=== PATIENT | male | born 1950 | race Hispanic/Latino ===

== ENCOUNTER 2017-05-26 12:35 | Emergency (ER) | payer OTHER ==
[2017-05-26 13:31] LABS: Anion Gap 15 mmol/L (10-20); BUN (Urea Nitrogen) 6 mg/dL (8.4-25.7); Calc. Creatinine Clearance 0 mL/min (70-130); Calcium 8.8 mg/dL (7.8-10.44); Carbon Dioxide 22 mmol/L (23-31); Chloride 100 mmol/L (98-107); Estimated GFR-MDRD Greater than 90
== END 2017-05-26 14:38 | disposition home or self-care (01) ==
LOC: ERS 12:35
DX: F10.129 Alcohol abuse with intoxication, unspecified (principal); J45.909 Unspecified asthma, uncomplicated; M19.90 Unspecified osteoarthritis, unspecified site; F41.9 Anxiety disorder, unspecified; F31.9 Bipolar disorder, unspecified; F20.9 Schizophrenia, unspecified; F17.210 Nicotine dependence, cigarettes, uncomplicated
CPT/HCPCS: 36415; 80048; 93005

== ENCOUNTER 2017-12-03 22:20 | Emergency (ER) | payer MEDICARE, OTHER ==
[2017-12-03] MEDS ORDERED: Multivitamins, Adult 10 ML, Thiamine HCl 100 MG, Folic Acid 1 MG in Dextrose 5 %-0.45 %... IV SCH ×4 (23:30)
--- NOTE | 2017-12-04 | RAD ---
PORTABLE AP CHEST X-RAY: 12/03/2017 HISTORY: Nausea and vomiting. Loss of appetite and diarrhea for four days. Abdominal pain. COMPARISON: 03/29/2017 FINDINGS: Again noted is blunting of the right lateral costophrenic angle, which may be related to small right pleural effusion and atelectasis. Mild chronic lung changes are again seen bilaterally. The left kailey ng is otherwise clear. The cardiac silhouette and pulmonary vasculature are within normal limits. V ascular calcifications are seen in the thoracic aorta. There is osteopenia. There has been no signi ficant interval change from the prior exam. IMPRESSION: 1. Small right pleural effusion and atelectasis. 2. Mild chronic lung changes. 3. Osteopenia. POS: EREN
[2017-12-04 00:37] LABS: ALT (SGPT) 11 U/L (8-55); AST (SGOT) 20 U/L (5-34); Acetaminophen Less than 6.0 mcg/mL (10.0-30.0); Albumin 3.3 g/dL (3.4-4.8); Alcohol Less than 10 mg/dL (Less than 10); Alkaline Phosphatase 60 U/L (40-150); Anion Gap 17 mmol/L (10-20); BUN (Urea Nitrogen) 17 mg/dL (8.4-25.7); Bilirubin, Total 0.4 mg/dL (0.2-1.2); CK (CPK) 23 U/L (30-200); Calc. Creatinine Clearance 0 mL/min (70-130); Carbon Dioxide 24 mmol/L (23-31); Chloride 93 mmol/L (98-107); Estimated GFR-MDRD Greater than 90; Globulin 4.5 g/dL (2.4-3.5); Glucose 124 mg/dL (80-115); Lipase 11 U/L (8-78); Potassium 4.4 mmol/L (3.5-5.1); Protein, Total 7.8 g/dL (5.8-8.1); Salicylate Less than 8.0 mg/dL (15.0-30.0); Sodium 130 mmol/L (136-145)
[2017-12-04 00:39] LABS: Band 30 % (5-11); Eosinophils 1 % (0-10); Hemoglobin 17.3 g/dL (14.0-18.0); Lymphocytes 21 % (21-51); MDiff Complete? YES; Mean Corpuscular Volume 91.3 fl (80.0-94.0); Mean Platelet Volume 6.7 fL (7.4-10.4); Metamyelocyte 2 % (0-0); Monocytes 3 % (0-10); Neutrophil 43 % (42-75); PLT Morphology Comment Appears Adequate; Platelet Count 258 thou/uL (130-400); RBC Distribution Width 12.3 % (11.5-14.5); Red Blood Cell (RBC) Count 5.58 mill/uL (4.70-6.10); White Blood Cell (WBC) Count 5.5 thou/uL (4.8-10.8)
[2017-12-04 00:42] LABS: Troponin I Less than 0.010 ng/mL (< 0.028)
== END 2017-12-04 01:15 | disposition home or self-care (01) ==
LOC: ERS 22:20
DX: M19.90 Unspecified osteoarthritis, unspecified site; F17.210 Nicotine dependence, cigarettes, uncomplicated; F31.9 Bipolar disorder, unspecified; Z71.6 Tobacco abuse counseling; K52.9 Noninfective gastroenteritis and colitis, unspecified; F41.9 Anxiety disorder, unspecified; J45.909 Unspecified asthma, uncomplicated; F20.9 Schizophrenia, unspecified
CPT/HCPCS: 36415; 71045; 80053; 80307; 82140; 82550; 82553; 83690; 84484; 85025; 93005; 99406; J3411; J7042

== ENCOUNTER 2019-10-22 13:08 | Emergency (ER) | payer MEDICARE, OTHER ==
[2019-10-22] MEDS ORDERED: Lidocaine 1% w/Epinephrine 1:100K 20 ML VIAL ONE (14:15)
[2019-10-22] MEDS ORDERED: Adacel (T-DAP) 0.5 ML SYRINGE ONE (14:15)
== END 2019-10-22 15:25 ==
LOC: ERS 13:08
DX: S01.81XA Laceration without foreign body of other part of head, initial encounter (principal); J45.909 Unspecified asthma, uncomplicated; F41.9 Anxiety disorder, unspecified; F31.9 Bipolar disorder, unspecified; F20.9 Schizophrenia, unspecified; Z79.899 Other long term (current) drug therapy; W01.0XXA Fall on same level from slipping, tripping and stumbling without subsequent striking against object, initial encounter
CPT/HCPCS: 12011; 90471; 90715

== ENCOUNTER 2019-10-25 21:08 | Inpatient (IN) | payer MEDICARE, MEDICAID ==
[2019-10-25] MEDS ORDERED: Rocuronium Bromide 10 MG/ML (10ML VIAL) ONE (21:13)
[2019-10-25 22:16] LABS: Actual Bicarbonate (HCO3a) 19.8 mEq/L (22-28); Analyzer IN Cardio ER; Calcium, Ionized 1.21 mmol/L (1.12-1.30); Carboxyhemoglobin (COHb) 0.9 gm% (0.0-3.0); Hemoglobin (Hb) 14.1 g/dL (14.0-18.0); O2 Tension (PaO2) 217.8 mmHg (> 80.0); Potassium - ABG Lab 3.76 mmol/L (3.70-5.30); pH, Arterial 7.27 (7.35-7.45)
[2019-10-25 22:19] LABS: Puncture Site R RADIAL
[2019-10-25 22:28] LABS: #Basophils 0.1 thou/uL (0.0-0.2); #Eosinphils 0.1 thou/uL (0.0-0.7); #Monocytes 0.8 thou/uL (0.11-0.59); #Neutrophils 8.3 thou/uL (1.40-6.50); %Basophils 0.8 % (0.0-1.0); %Eosinophils 0.9 % (0.0-10.0); %Lymphocytes 17.9 % (21.0-51.0); %Monocytes 6.8 % (0.0-10.0); %Neutrophils 73.5 % (42.0-75.0); Mean Corpuscular HGB CONC 33.2 g/dL (32.0-36.0); Mean Corpuscular Hemoglobin 32.8 pg (27.0-31.0); Mean Platelet Volume 7.2 fL (7.4-10.4); Platelet Count 240 thou/uL (130-400); RBC Distribution Width 11.8 % (11.5-14.5); Red Blood Cell (RBC) Count 4.26 mill/uL (4.70-6.10); White Blood Cell (WBC) Count 11.2 thou/uL (4.8-10.8)
[2019-10-25 22:31] LABS: ALT (SGPT) 11 U/L (8-55); AST (SGOT) 16 U/L (5-34); Acetaminophen Less than 6.0 mcg/mL (10.0-30.0); Albumin 3.7 g/dL (3.4-4.8); Alcohol 53 mg/dL (Less than 10); Alkaline Phosphatase 82 U/L (40-110); Anion Gap 14 mmol/L (10-20); BUN (Urea Nitrogen) 9 mg/dL (8.4-25.7); Bilirubin, Total 0.3 mg/dL (0.2-1.2); Calc. Creatinine Clearance 0 mL/min (70-130); Calcium 8.8 mg/dL (7.8-10.44); Carbon Dioxide 21 mmol/L (23-31); Chloride 108 mmol/L (98-107); Estimated GFR-MDRD Greater than 90; Globulin 3.7 g/dL (2.4-3.5); Glucose 125 mg/dL (80-115); Potassium 3.6 mmol/L (3.5-5.1); Protein, Total 7.4 g/dL (5.8-8.1); Salicylate Less than 8.0 mg/dL (15.0-30.0); Sodium 139 mmol/L (136-145)
--- NOTE | 2019-10-25 22:47 | CT ---
Exam: CT brain PROVIDED CLINICAL HISTORY: Altered mental status COMPARISON: 03/28/2017 FINDINGS: The ventricular system is normal in size and morphology. No evidence for intracranial hemorrhage or mass effect. The extracranial soft tissues and osseous structures demonstrate no evidence for an acute abnormality. IMPRESSION: No evidence for intracranial hemorrhage or mass effect.
--- NOTE | 2019-10-25 22:52 | RAD ---
EXAM: Portable chest PROVIDED CLINICAL HISTORY: Altered mental status COMPARISON: 12/03/2017 FINDINGS: Cardiac and mediastinal silhouette is within normal limits. No focal consolidation, pleural fluid or pneumothorax evident. Endotracheal tube is present, tip of which terminates caudal to the thoracic inlet but cranial to the cj. Defibrillator pad overlies the right chest. No focal consolidation e vident. Supine nature of the examination limits sensitivity for pleural fluid and pneumothorax, without evidence for such. IMPRESSION: No evidence for an acute cardiopulmonary process.
[2019-10-25 22:55] LABS: Bilirubin Negative (Negative); Blood, Urine Negative (Negative); Clarity Clear (Clear); Glucose, Urine (Dipstick) 70 mg/dL (Negative); Leukocyte Negative Leu/uL (Negative); Nitrite Negative (Negative); Protein, Urine (Dipstick) Negative (Neg-Trace); Urobilinogen Normal mg/dL (Less than 2)
[2019-10-25 23:06] LABS: Amphetamine Not Detected (NotDetected); Barbiturates Screen Not Detected (NotDetected); Benzodiazepine Screen Detected (NotDetected); Cocaine Metabolite Screen Not Detected (NotDetected); Medtox Control Line Valid? VALID (VALID); Medtox Reader # READER 1; Methadone Not Detected (NotDetected); Methamphetamine Not Detected (NotDetected); Opiate Screen Detected (NotDetected); Oxycodone Screen Not Detected (NotDetected); Phencyclidine (PCP) Not Detected (NotDetected); THC/Cannabinoid Screen Not Detected (NotDetected); Tricyclic Screen Not Detected (NotDetected)
[2019-10-25] MEDS ORDERED: Acetaminophen 650 MG Suppository PR PRN (23:06)
[2019-10-25] MEDS ORDERED: Naloxone HCl 2 mg/2 ml Syringe ONE (23:22)
--- NOTE | 2019-10-26 00:33 | HP ---
CHIEF COMPLAINT: Unresponsive. HISTORY OF PRESENT ILLNESS: Mr. Reddy is a 68-year-old male, who just got out of shelter today at around 7:30 p.m. and was alone for 45 minutes. He was brought by the emergency room after the family found the patient unresponsive in car with a can of beer in his hand. The patient states that he has no allergies. Family denies any past medical history, but as per records, there is a history of bipolar disorder. In the emergency room, the patient was intubated for hypercapnic respiratory failure and unresponsiveness. Initial workup in the emergency room, the patient had a white cell count of 11.2, hemoglobin 14, platelets 240. Sodium 139, potassium 3.6, BUN is 9, creatinine is 0.8. ALT, AST normal. Chest x-ray, no acute finding. Brain CT, no acute finding. Urine drug screen is positive for opiates and benzodiazepines. The patient is being admitted to the intensive care unit for further management. PAST MEDICAL HISTORY: As mentioned above in the history of present illness. PAST SURGICAL HISTORY: Unknown. ALLERGIES: PENICILLIN, PIPERACILLIN AND TAZOBACTAM. HOME MEDICATIONS: Unknown. FAMILY HISTORY: Unknown. The patient is intubated, sedated. REVIEW OF SYSTEMS: Unable to obtain. The patient is intubated, sedated. PHYSICAL EXAMINATION: GENERAL: The patient is intubated, sedated, mechanically ventilated. VITAL SIGNS: Blood pressure 176/90, pulse is 68, respiratory rate is 19, pulse oximetry is 100%, temperature is 96.6. HEAD: Normocephalic, atraumatic. NECK: Supple. No JVD. CHEST: Fair bilateral air entry. HEART: S1, S2. Regular. ABDOMEN: Soft. Bowel sounds present. NEUROLOGIC: Intubated, sedated, unable to assess. PSYCHIATRIC: Intubated, sedated, unable to assess. GENITOURINARY: No suprapubic tenderness. No flank tenderness. Ferrer catheter in place. MUSCULOSKELETAL: No joint deformity. LABORATORY DATA: As mentioned above in the history of present illness. IMAGING STUDIES: As mentioned above in the history of present illness. ASSESSMENT: 1. Acute respiratory failure. 2. Acute encephalopathy, metabolic/toxic. Etiology is not clear at this point. 3. History of bipolar disorder?? PLAN: 1. Admit to ICU. 2. Keep n.p.o. 3. Continue full ventilator support. 4. Consult Pulmonary for critical care management and ventilator management. 5. GI prophylaxis. 6. DVT prophylaxis. 7. Expected length of stay, 2 midnights or more. Job ID: [id number]
[2019-10-26 01:06] LABS: Lactic Acid 1.3 mmol/L (0.5-2.2)
[2019-10-26] MEDS ORDERED: DISCONTINUE PREVIOUS NARCOTIC PAIN MEDICATIONS AND BENZODIAZEPINES FS SCH (01:07)
[2019-10-26] MEDS ORDERED: Morphine 2 MG/ML SYRINGE SLOW IVP PRN (01:07)
[2019-10-26] MEDS ORDERED: Propofol BOLUS 1,000 MG/100 ML VIAL IV PRN (01:07)
[2019-10-26] MEDS ORDERED: Lorazepam 2 MG/ML VIAL SLOW IVP PRN (01:07)
[2019-10-26] MEDS ORDERED: fentaNYL Citrate/PF 2,000 MCG in Sodium Chloride 0.9% 60 ML IV SCH (01:07)
[2019-10-26] MEDS ORDERED: Propofol 1,000 MG/100 ML VIAL IV PRN (01:07)
[2019-10-26] MEDS ORDERED: Fentanyl BOLUS 250 ML IVPB PRN (01:07)
[2019-10-26 01:15] LABS: Troponin I 0.018 ng/mL (< 0.028)
[2019-10-26] MEDS: Dextrose 5 % And 0.9 % NaCl 1,000 ML IV SCH ×2 (01:20→07:51)
[2019-10-26 01:35] VITALS: BMI 19.8
[2019-10-26 03:40] LABS: #Eosinphils 0.1 thou/uL (0.0-0.7); #Lymphocytes 1.6 thou/uL (1.20-3.40); #Monocytes 1.2 thou/uL (0.11-0.59); #Neutrophils 7.1 thou/uL (1.40-6.50); %Basophils 0.4 % (0.0-1.0); %Eosinophils 1.3 % (0.0-10.0); %Lymphocytes 16.3 % (21.0-51.0); %Monocytes 11.7 % (0.0-10.0); %Neutrophils 70.3 % (42.0-75.0); Hemoglobin 15.9 g/dL (14.0-18.0); Mean Corpuscular HGB CONC 33.3 g/dL (32.0-36.0); Mean Corpuscular Hemoglobin 32.7 pg (27.0-31.0); Mean Corpuscular Volume 98.1 fL (78.0-98.0); Mean Platelet Volume 7.1 fL (7.4-10.4); Platelet Count 177 thou/uL (130-400); RBC Distribution Width 11.8 % (11.5-14.5); Red Blood Cell (RBC) Count 4.87 mill/uL (4.70-6.10); White Blood Cell (WBC) Count 10.1 thou/uL (4.8-10.8)
[2019-10-26 04:00] LABS: ALT (SGPT) 12 U/L (8-55); AST (SGOT) 16 U/L (5-34); Albumin 3.3 g/dL (3.4-4.8); Alkaline Phosphatase 69 U/L (40-110); Anion Gap 14 mmol/L (10-20); BUN (Urea Nitrogen) 9 mg/dL (8.4-25.7); Bilirubin, Total 0.5 mg/dL (0.2-1.2); Calc. Creatinine Clearance 65 mL/min (70-130); Calcium 8.6 mg/dL (7.8-10.44); Carbon Dioxide 21 mmol/L (23-31); Chloride 110 mmol/L (98-107); Estimated GFR-MDRD Greater than 90; Globulin 3.5 g/dL (2.4-3.5); Glucose 100 mg/dL (80-115); Potassium 3.9 mmol/L (3.5-5.1); Protein, Total 6.8 g/dL (5.8-8.1); Sodium 141 mmol/L (136-145)
[2019-10-26 04:03] LABS: Troponin I 0.051 ng/mL (< 0.028)
[2019-10-26] MEDS: Enoxaparin Sodium 40 MG/0.4 ML SYRINGE SC SCH (08:00)
[2019-10-26] MEDS ORDERED: Famotidine/PF 20 mg/2ml Vial SLOW IVP SCH (09:00)
[2019-10-26] MEDS ORDERED: FLU VACC TS2019-20(65YR UP)/PF 180 MCG/0.5 ML SYRINGE IM ONE (09:00)
[2019-10-26] MEDS ORDERED: Prevnar 13-Val Conj/PF 0.5 ML SYRINGE IM ONE (09:00)
[2019-10-26] MEDS ORDERED: risperiDONE 1 MG TAB PO SCH (12:30)
--- NOTE | 2019-10-26 13:31 | CON ---
DATE OF CONSULTATION: 10/26/2019 SERVICE: Pulmonary Medicine. REASON FOR CONSULTATION: ICU patient. HISTORY OF PRESENT ILLNESS: The patient is a 69-year-old male with past medical history significant for polysubstance drug use. Ultimately, he took benzodiazepines, narcotics, and alcohol, and ultimately took a very deep nap. Initially, he was unresponsive. He was intubated to protect his airway. Overnight, these medications came out of his system, and he wakes up on the ventilator. With a sedation holiday, he is cool, calm, and collected, and doing great on a spontaneous breathing trial. He cannot provide me any additional elements of the history at this point. PAST MEDICAL HISTORY: Polysubstance drug abuse. PAST SURGICAL HISTORY: Unknown. ALLERGIES: PENICILLIN. MEDICATIONS: List of the inpatient medications was reviewed. Multiple updates were made at this time. FAMILY HISTORY: Noncontributory. SOCIAL HISTORY: Positive for polysubstance drug use. He uses alcohol. It is unknown if he uses tobacco products. REVIEW OF SYSTEMS: Cannot be obtained as the patient is currently intubated. PHYSICAL EXAMINATION: VITAL SIGNS: Afebrile, pulse 86, blood pressure 97/59, respirations 13, saturation 99%, currently on 21% FiO2 and a PEEP of 5. GENERAL: The patient is awake and alert, in no apparent distress. LUNGS: Decreased air entry with a slightly prolonged expiratory phase. Wheezing is present. No crackles or rhonchi appreciated. HEART: Normal rate. Regular. ABDOMEN: Soft, nontender, and nondistended. Bowel sounds are positive. MUSCULOSKELETAL: No cyanosis or clubbing. There is no pitting in the bilateral lower extremities. NEUROLOGIC: Grossly nonfocal. LABORATORY DATA: WBC 10.1, hemoglobin 15.9, and platelets 177,000. PH 7.27, pCO2 of 44, PO2 of 217 on 50% FiO2 at that time. Basic metabolic profile and liver function studies are otherwise unremarkable. Troponin is up trending to 0.051. Urinalysis is unremarkable. Opiates, benzodiazepines, and alcohol are present on the urine drug screen. Acetaminophen and salicylates are otherwise unremarkable. Blood cultures x2 are negative. IMAGIN. CT of the brain demonstrates no acute intracranial abnormality. 2. Chest x-ray demonstrates excellent position of the endotracheal tube. A large gastric bubble is present. That being said, there are no significant acute inflammatory or infectious changes here. There is a rim of atelectasis at the left base. ASSESSMENT: 1. Respiratory failure, secondary to inability to protect airway. 2. Metabolic encephalopathy. 3. Polysubstance drug abuse including benzodiazepines, opiates, and alcohol. DISCUSSION AND PLAN: We will put the patient on a spontaneous breathing trial. If he meets criteria, extubation will be considered. If he does well, he can be considered for transition out of the ICU to the medical unit. If he remains in this location, Pulmonary will follow. Job ID: [id number]
[2019-10-26 14:32] LABS: Troponin I 0.036 ng/mL (< 0.028)
--- NOTE | 2019-10-26 14:37 | RAD ---
Right shoulder: 3 views INDICATION:Shoulder pain FINDINGS: Humeral head has normal position. AC joint normally aligned. No fracture, dislocation, or other acute process. No soft tissue abnormality. IMPRESSION: No acute finding
[2019-10-26] MEDS ORDERED: traZODone HCl 150 MG TAB PO SCH (21:00)
--- NOTE | 2019-10-26 21:53 | ULT ---
EXAM: US Soft Tissue Other PROVIDED CLINICAL HISTORY: Right shoulder fluid collection COMPARISON: None FINDINGS: Limited sonographic interrogation was performed of the right shoulder in the region of palpable alida rn. There is an ovoid hypoechoic mass present measuring about 7.2 x 1.4 x 6.7 cm. This demonstrates partial and echogenicity as well as more complex components. IMPRESSION: 7.2 cm complex cystic structure in the region of palpable concern, compatible with phlegmon/abscess i n the appropriate clinical context.
[2019-10-27 01:08] VITALS: TEMP 98.7
[2019-10-27 04:17] VITALS: BP 120/61
[2019-10-27] MEDS ORDERED: Thiamine 100 MG TAB PO SCH (09:00)
[2019-10-27] MEDS ORDERED: risperiDONE 1 MG TAB PO SCH (09:00)
[2019-10-27] MEDS ORDERED: Folic Acid 1 MG TAB PO SCH (09:00)
[2019-10-27] MEDS ORDERED: Bupropion 150 MG XL TAB PO SCH (09:00)
[2019-10-27] MEDS: Enoxaparin Sodium 40 MG/0.4 ML SYRINGE SC SCH (09:14)
--- NOTE | 2019-10-27 09:56 | PDOC.HOSPP ---
- Subjective Encounter Date: 10/27/19 Encounter Time: 09:50 Subjective: f/u s/p polysubstance abuse with benzodiazepines/ETOH/narcotics with resp failure on short term mech ventilation extubating 10/26/19 and transitioning to medical floor. No new events reported - Objective Vital Signs & Weight: Vital Signs (12 hours) Temp Pulse Resp BP Pulse Ox 10/27/19 08:00 96 10/27/19 04:16 98.7 F 81 20 120/61 95 10/27/19 03:59 98 10/27/19 01:05 98.7 F 85 18 101/48 L 94 L Weight Admit Weight 108 lb 11.006 oz Weight 108 lb 11.006 oz Most Recent Monitor Data Heart Rate from ECG 92 NIBP 137/79 NIBP BP-Mean 98 Respiration from ECG 17 SpO2 100 I&O: 10/26/19 10/27/19 10/28/19 06:59 06:59 06:59 Intake Total 822.7 734 Output Total 250 715 Balance 572.7 19 Result Diagrams: 10/26/19 03:32 10/26/19 03:32 Hospitalist ROS - Medication Medications: Active Medications Generic Name Dose Route Start Last Admin Trade Name Dhirajq PRN Reason Stop Dose Admin Bupropion HCl 150 mg 10/27/19 09:00 10/27/19 09:14 Wellbutrin Xl PO 150 mg DAILY JOSSELINE Administration Enoxaparin Sodium 40 mg 10/26/19 09:00 10/27/19 09:14 Lovenox SC 40 mg 0900 JOSSELINE Administration Folic Acid 1 mg 10/27/19 09:00 10/27/19 09:14 Folvite PO 1 mg DAILY JOSSELINE Administration Risperidone 2 mg 10/27/19 09:00 10/27/19 09:14 Risperidone PO 2 mg DAILY JOSSELINE Administration Thiamine HCl 100 mg 10/27/19 09:00 10/27/19 09:14 Thiamine PO 100 mg DAILY JOSSELINE Administration Trazodone HCl 150 mg 10/26/19 21:00 10/26/19 20:57 Desyrel PO 150 mg HS JOSSELINE Administration
--- NOTE | 2019-10-27 11:58 | DIS ---
DATE OF ADMISSION: 10/26/2019 DATE OF DISCHARGE: 10/27/2019 DISCHARGE DIAGNOSES: 1. Acute hypoxic hypercapnic respiratory failure. 2. Polysubstance abuse with benzodiazepines, opiates, and alcohol. 3. Acute toxic metabolic encephalopathy secondary to polysubstance abuse, resolved. CONSULTATIONS: Dr. Trevizo with Pulmonology Service. PERTINENT LABORATORY AND X-RAY FINDINGS: Lactic acid level ranged between 1.3 to 2.6. LFTs within normal limits. Troponin I ranged between 0.010 to 0.051. CBC showed a white blood cell count ranged between 10.1 to 11.2. Urine drug screen dated 10/25/2019, positive for opiates, benzodiazepines, and plasma alcohol level 53. Blood cultures x1 dated 10/25/2019 showed no growth to date. Urine culture dated 10/25/2019 showed no growth at [address] of the brain without contrast dated 10/25/2019 showed no acute intracranial process. Portable chest x-ray dated 10/25/2019 showed no acute cardiopulmonary process. Three views of the right shoulder dated 10/26/2019 showed no acute process. Soft tissue ultrasound of the right shoulder showed hypoechoic mass with cystic structures. HOSPITAL COURSE: The patient was initially admitted to the critical Care Unit after presenting unresponsive and intubated with urine drug screen positive for benzodiazepines, alcohol, and opiates. The patient was placed on mechanical ventilation due to concern for airway protection and managed in the critical care unit for approximately 24 hours. The patient was given general supportive management including IV fluids and banana bag and weaned off mechanical ventilation after passing a spontaneous breathing trial. The patient successfully was extubated on 10/26/2019 and transferred to the medical floor remaining stable under observation. The patient was given instruction and education regarding avoidance of substance abuse and alcohol and its ramifications for long-term health. The patient overall remained clinically stable during the hospital course, tolerating regular oral intake with stable vital signs. I have examined the patient at the time of discharge and discussed followup instructions. The patient verbalized understanding and agreement ready for discharge 10/27/2019. DISCHARGE MEDICATIONS: None. FOLLOWUP: The patient may follow up with Dr. Martha Villarreal within 7 days of discharge. CONDITION ON DISCHARGE: Fair. ACTIVITY: Ad-miah. DIET: Regular. CODE STATUS: Full. DISPOSITION: Home, 10/27/2019. TIME SPENT: Total time preparing and coordinating discharge, 32 minutes. Job ID: [id number]
--- NOTE | 2019-10-27 12:46 | PDOC.EVN ---
Event Note - Event Note Event Note: Discussed R shoulder abscess with patient/family regarding I&D but pt decided to deal with it later and did not want to stay longer. Recommend follow up with urgent care/clinic for local I&D as pt has hx of subcutaneous abscess after IV drug use.
== END 2019-10-27 11:42 | disposition home or self-care (01) | DRG 208 ==
LOC: ERS 21:08 → T4-A 10-26 00:55 → CCU 10-26 01:00 → T4-A 10-26 15:48
PROVIDERS: ADMIT Internal Medicine; ATTEND Internal Medicine
PROC: 0BH17EZ Insertion of Endotracheal Airway into Trachea, Via Natural or Artificial Opening (ICD-10-PCS; principal; 2019-10-26)
PROC: 5A1935Z Respiratory Ventilation, Less than 24 Consecutive Hours (ICD-10-PCS; 2019-10-26)
DX: J96.02 Acute respiratory failure with hypercapnia (principal); G92 Toxic encephalopathy; E87.2 Acidosis; J96.01 Acute respiratory failure with hypoxia; F19.10 Other psychoactive substance abuse, uncomplicated; F11.10 Opioid abuse, uncomplicated; F10.10 Alcohol abuse, uncomplicated; Z88.1 Allergy status to other antibiotic agents; Z88.0 Allergy status to penicillin; Z88.8 Allergy status to other drugs, medicaments and biological substances; F31.9 Bipolar disorder, unspecified
CPT/HCPCS: 31500; 36415; 51702; 70450; 71045; 76999; 80053; 80306; 80307; 81003; 82805; 83520; 83605; 84145; 84484; 85025; 85652; 86038; 86140; 86200; 86225; 87040; 87086; 93005; 94002; 94640; 96365; 96366; 96375; J1650; J2310; J7620; S0028

== ENCOUNTER 2019-10-28 16:17 | Emergency (ER) | payer MEDICARE, MEDICAID ==
[2019-10-28] MEDS ORDERED: Lidocaine 1% w/Epinephrine 1:100K 20 ML VIAL ONE (16:48)
--- NOTE | 2019-10-28 17:43 | RAD ---
EXAM: CHEST ONE VIEW PORTABLE: History: Injury from falling, weakness. Comparison: 12-03-17 FINDINGS: Heart size is normal. The lungs are clear of acute process. No confluent pneumonia, overt edema, or p leural effusion. Minimal stable increased markings in the bases. IMPRESSION: Minimal stable increased markings in the bases. No pneumonia or other acute process. Atherosclerosis of the aorta. POS: RRE
[2019-10-28 18:24] LABS: #Eosinphils 0.3 thou/uL (0.0-0.7); #Monocytes 0.5 thou/uL (0.11-0.59); #Neutrophils 6.9 thou/uL (1.40-6.50); %Basophils 0.2 % (0.0-1.0); %Eosinophils 3.4 % (0.0-10.0); %Lymphocytes 11.8 % (21.0-51.0); %Neutrophils 78.6 % (42.0-75.0); Hemoglobin 13.9 g/dL (14.0-18.0); Mean Corpuscular HGB CONC 34.4 g/dL (32.0-36.0); Mean Corpuscular Hemoglobin 33.3 pg (27.0-31.0); Mean Corpuscular Volume 96.7 fL (78.0-98.0); Mean Platelet Volume 7.2 fL (7.4-10.4); Platelet Count 239 thou/uL (130-400); RBC Distribution Width 11.6 % (11.5-14.5); Red Blood Cell (RBC) Count 4.17 mill/uL (4.70-6.10); White Blood Cell (WBC) Count 8.8 thou/uL (4.8-10.8)
[2019-10-28 18:42] LABS: Acetaminophen Less than 6.0 mcg/mL (10.0-30.0); Alcohol Less than 10 mg/dL (Less than 10); Salicylate Less than 8.0 mg/dL (15.0-30.0)
[2019-10-28 18:46] LABS: ALT (SGPT) 12 U/L (8-55); AST (SGOT) 18 U/L (5-34); Albumin 3.2 g/dL (3.4-4.8); Alkaline Phosphatase 72 U/L (40-110); Anion Gap 14 mmol/L (10-20); BUN (Urea Nitrogen) 9 mg/dL (8.4-25.7); Bilirubin, Total 0.5 mg/dL (0.2-1.2); Calc. Creatinine Clearance 0 mL/min (70-130); Calcium 8.4 mg/dL (7.8-10.44); Carbon Dioxide 26 mmol/L (23-31); Chloride 99 mmol/L (98-107); Estimated GFR-MDRD Greater than 90; Globulin 3.5 g/dL (2.4-3.5); Glucose 166 mg/dL (80-115); Lipase 13 U/L (8-78); Magnesium 1.9 mg/dL (1.6-2.6); Potassium 4.7 mmol/L (3.5-5.1); Protein, Total 6.7 g/dL (5.8-8.1); Sodium 134 mmol/L (136-145)
[2019-10-28 19:32] LABS: Amphetamine Not Detected (NotDetected); Barbiturates Screen Not Detected (NotDetected); Benzodiazepine Screen Detected (NotDetected); Cocaine Metabolite Screen Not Detected (NotDetected); Medtox Control Line Valid? VALID (VALID); Medtox Reader # READER 4; Methadone Not Detected (NotDetected); Methamphetamine Not Detected (NotDetected); Opiate Screen Detected (NotDetected); Oxycodone Screen Not Detected (NotDetected); Phencyclidine (PCP) Not Detected (NotDetected); THC/Cannabinoid Screen Not Detected (NotDetected); Tricyclic Screen Not Detected (NotDetected)
[2019-10-28 20:40] LABS: Bilirubin Negative (Negative); Blood, Urine Small (Negative); Glucose, Urine (Dipstick) Negative (Negative); Leukocyte Negative (Negative); Nitrite Negative (Negative); Protein, Urine (Dipstick) Negative (Neg-Trace); Urobilinogen 0.2 mg/dL (Less than 2)
[2019-10-28 20:42] LABS: Clarity Clear (Clear)
[2019-10-28 20:43] LABS: Bacteria/HPF None Seen HPF (None Seen); Squamous Epithelial 0-3 HPF (0-3)
== END 2019-10-28 20:33 | disposition home or self-care (01) ==
LOC: ERS 16:17
DX: R53.1 Weakness (principal); L02.413 Cutaneous abscess of right upper limb; J45.909 Unspecified asthma, uncomplicated; F41.9 Anxiety disorder, unspecified; F31.9 Bipolar disorder, unspecified; F20.9 Schizophrenia, unspecified
CPT/HCPCS: 10061; 71045; 80053; 80306; 80307; 81003; 81015; 82140; 83605; 83690; 83735; 84484; 85025; 87040; 93005; 94760

== ENCOUNTER 2019-10-30 11:15 | Emergency (ER) | payer MEDICARE, MEDICAID | END 2019-10-30 13:50 | disposition home or self-care (01) | LOC: ERS 11:15 | DX: Z48.01 Encounter for change or removal of surgical wound dressing (principal); J45.909 Unspecified asthma, uncomplicated; F41.9 Anxiety disorder, unspecified; F31.9 Bipolar disorder, unspecified; F20.9 Schizophrenia, unspecified; F17.210 Nicotine dependence, cigarettes, uncomplicated | CPT/HCPCS: 99282 ==